=== PATIENT | male | born 1950 | race Caucasian/White ===

== ENCOUNTER → 2016-07-20 | Outpatient (CLI) | payer OTHER | END | disposition home or self-care (01) | LOC: MW.CHFP 07:47 | PROVIDERS: ATTEND Student in an Organized Health Care Education/Training Program | DX: E78.00 Pure hypercholesterolemia, unspecified (principal) | CPT/HCPCS: 36415; 80061 ==

== ENCOUNTER → 2016-09-23 | Outpatient (CLI) | payer OTHER ==
[~2016-09-23] MED LIST: Gadobenate Dimeglumine 529 MG/ML 20 ML SDV IV ONE
--- NOTE | 2016-09-26 13:54 | MR ---
EXAM DATE: 09/23/16 PATIENT'S AGE: 65 Patient: KELLY DAVILA Facility: [place], [place] Site Site : 1950 Study: MRI Head Angio [id number]/19/2017 5:18:29 PM Ordering Physician: YVETTE BAUMAN Final Report: INDICATION: TIA TECHNIQUE: TOF MRA of COW with 3D MIP provided. No comparisons. FINDINGS: The visualized first and second order intracranial vessels are unremarkable. Specifically, no suspicious narrowing or aneurysmal dilatation. IMPRESSION: Unremarkable MRA of the head as far as visualized. Dictated by Vega Madden MD @ Sep 23 2016 8:14PM (Electronic Signature) Report Signed by Proxy. DANIELLA
--- NOTE | 2016-09-26 13:54 | MR ---
EXAM DATE: 09/23/16 PATIENT'S AGE: 65 Patient: KELLY SHEETS Facility: [place], [place] Site Site : 1950 Study: MRI Head W/ and W/O Cont [id number]/19/2017 5:21:20 PM Ordering Physician: YVETTE BAUMAN MD Final Report: Indication: TIA. Technique: Noncontrast sagittal T1, axial FLAIR, T2, diffusion, post contrast T1 weighted sequences are provided. No comparisons. Findings: The ventricles, sulci and gyri are normal size, shape and contour for age. The midline structures are centrally located with no evidence of shift. There are no suspicious intra or extra-axial fluid collections. No region of restricted diffusion or suspicious regions of abnormal parenchymal enhancement. Expected flow voids in the cavernous carotids and basilar artery. Impression: Unremarkable MRI of the head. Dictated by Vega Madden MD @ Sep 23 2016 8:13PM (Electronic Signature) Report Signed by Proxy. DANIELLA
--- NOTE | 2016-09-26 13:55 | MR ---
EXAM DATE: 09/23/16 PATIENT'S AGE: 65 Patient: KELLY DAVILA Facility: [place], [place] Site Site : 1950 Study: MRI Neck Angio W/ and W/O Cont [id number]/19/2017 5:23:11 PM Ordering Physician: YVETTE BAUMAN MD Final Report: INDICATION: TIA TECHNIQUE: TOF and Mark bolus MRA of the neck with 3D MIP reconstructions provided. All measurements are based on NASCET criteria. No comparisons. FINDINGS: The visualized cervical carotids and vertebral arteries are unremarkable. Specifically, no evidence of suspicious narrowing or aneurysmal dilatation. IMPRESSION: Unremarkable MRA of the neck as far as visualized. Dictated by Vega Madden MD @ Sep 23 2016 8:14PM (Electronic Signature) Report Signed by Proxy. DANIELLA
== END ==
LOC: MW.MRI 15:35
PROVIDERS: ATTEND Psychiatry & Neurology Neuromuscular Medicine
DX: G45.9 Transient cerebral ischemic attack, unspecified (principal)
CPT/HCPCS: 70544; 70548; 70553; A9577